=== PATIENT | male | born 1990 | race Caucasian/White ===

== ENCOUNTER 2018-05-21 19:05 | Emergency (ER) | payer SELFPAY ==
[~2018-05-21] VITALS: Ht 170.2 cm; Wt 61.0 kg
[2018-05-21 19:09] VITALS: BP 133/79
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
--- NOTE | 2018-05-21 19:16 | NUR ---
TO ED 12, OFFERED WHEELCHAIR ASSITANCE, PT DECLINED.
--- NOTE | 2018-05-21 19:30 | NUR ---
XRAY AT BEDSIDE.
[2018-05-21] MEDS ORDERED: IBUPROFEN 800 MG TAB PO ONE (20:10)
--- NOTE | 2018-05-21 20:50 | NUR ---
PLACED A POSTERIOR SHORT LEG SPLINT ON PT'S RIGHT LEG. SECURED WITH MING WRAPS AND CONDUCTED ONE ON ONE INSTRUCTION ON THE USE OF CRUTCHES.
--- NOTE | 2018-05-21 20:53 | NUR ---
Patient discharged with v/s stable. Written and verbal after care instructions given and explained. Patient alert, oriented and verbalized understanding of instructions. Ambulatory with steady gait. All questions addressed prior to discharge. ID band removed. Patient advised to follow up with PMD. Rx of MOTRIN 800 MG given. Patient educated on indication of medication including possible reaction and side effects. Opportunity to ask questions provided and answered.
[2018-05-21 21:00] VITALS: BP 109/53
== END 2018-05-21 20:53 | disposition home or self-care (01) ==
LOC: MED 19:05
DX: S90.31XA Contusion of right foot, initial encounter (principal); V03.90XA Pedestrian on foot injured in collision with car, pick-up truck or van, unspecified whether traffic or nontraffic accident, initial encounter; Y93.01 Activity, walking, marching and hiking; Y92.89 Other specified places as the place of occurrence of the external cause; Y99.8 Other external cause status
CPT/HCPCS: 29515; 73630; 73700; 99284; Q0092